=== PATIENT | female | born 1965 | race African-American/Black ===

== ENCOUNTER 2024-08-02 14:16 | Outpatient (CLI) | payer OTHER | END 2024-08-02 14:17 | disposition home or self-care (01) | LOC: NAV RAD 14:16 | PROVIDERS: ATTEND Physician Assistant | DX: D86.3 Sarcoidosis of skin (principal) | CPT/HCPCS: 71046 ==

== ENCOUNTER 2025-03-26 14:37 | Emergency (ER) | payer OTHER ==
[2025-03-26] MEDS ORDERED: Lidocaine 1% w/Epinephrine 1:100K 20 ML VIAL ONE (15:22)
[2025-03-26] MEDS ORDERED: Acetaminophen 500 MG TAB ONE (15:48)
[2025-03-26 15:49] LABS: Anion Gap 17 mmol/L (10-20); BUN (Urea Nitrogen) 16 mg/dL (9.8-20.1); Calc. Creatinine Clearance 0 mL/min (70-130); Carbon Dioxide 19 mmol/L (22-29); Chloride 104 mmol/L (98-107); Potassium 3.8 mmol/L (3.5-5.1); Sodium 136 mmol/L (136-145)
[2025-03-26 15:50] LABS: ALT (SGPT) 7 U/L (Less than 34); AST (SGOT) 15 U/L (11-34); Albumin 3.7 g/dL (3.1-4.5); Alkaline Phosphatase 58 U/L (40-110); Bilirubin, Total 0.6 mg/dL (0.3-1.2); Calcium 9.5 mg/dL (7.8-10.44); Globulin 4.5 g/dL (2.4-3.5); Glucose 98 mg/dL (70-105)
[2025-03-26 16:01] LABS: #Basophils 0.1 thou/uL (0.0-0.2); #Eosinophils 0.1 thou/uL (0.0-0.7); #Lymphocytes 1.4 thou/uL (1.20-3.40); #Monocytes 1.1 thou/uL (0.11-0.59); #Neutrophils 4.6 thou/uL (1.40-6.50); %Basophils 2.0 % (0.0-1.0); %Eosinophils 1.1 % (0.0-10.0); %Lymphocytes 19.1 % (21.0-51.0); %Monocytes 14.7 % (0.0-10.0); %Neutrophils 63.1 % (42.0-75.0); Hematocrit 33.2 % (36.0-47.0); Hemoglobin 10.5 g/dL (12.0-16.0); Mean Corpuscular Hemoglobin 27.1 pg (27.0-31.0); Mean Corpuscular Volume 86.3 fl (78.0-98.0); Platelet Count 230 10x3/uL (130-400); Red Blood Cell (RBC) Count 3.85 mill/uL (4.20-5.40); White Blood Cell (WBC) Count 7.3 10x3/uL (4.8-10.8)
[2025-03-26] MEDS ORDERED: Ketorolac Tromethamine 30 MG (1 mL) VIAL ONE (16:31)
[2025-03-26 19:07] LABS: WBC/Nucleated-Auto (BF) 20998 /cu.mm
[2025-03-26 19:10] LABS: RBC Count-Automated (BF) 12 /cu.mm
[2025-03-26 19:14] LABS: BF Segmented Neutrophils 79 %; Cell Count Non Hematic 19 %
[2025-03-26] MEDS ORDERED: cefTRIAXone (ROCEPHIN) 1 GM VIAL ONE (19:36)
[2025-03-26] MEDS ORDERED: Ondansetron PF 4 MG/2 ML Vial ONE (20:02)
== END 2025-03-27 01:15 | disposition short-term general hospital (02) ==
LOC: NAV ERS 14:37
DX: M17.11 Unilateral primary osteoarthritis, right knee (principal); I10 Essential (primary) hypertension; Z79.899 Other long term (current) drug therapy
CPT/HCPCS: 20610; 80053; 82945; 85025; 85060; 87070; 87205; 89051; 89060; 96365; 96366; 96367; 96375; J0696; J1885; J2405; J3373; J7030